=== PATIENT | male | born 1980 | race Two or more races ===

== ENCOUNTER 2023-03-04 14:33 | Emergency (ER) | payer SELFPAY ==
[2023-03-04] MEDS ORDERED: Benzocaine 20% Topical Spray UD MUCMEM ONE (16:08)
[2023-03-04] MEDS ORDERED: Midazolam 1 MG/ML 2 ML SDV IVPUSH ONE ×2 (17:11→17:33)
[2023-03-04] MEDS ORDERED: Lactated Ringers 1,000 ML IV SCH (17:15)
[2023-03-04] MEDS ORDERED: Propofol 200 MG/20 ML SDV ONE ×2 (17:36→18:08)
[2023-03-04] MEDS ORDERED: Lidocaine 1% 2 ML ONE (17:37)
[2023-03-04] MEDS ORDERED: fentaNYL 100 MCG/2 ML SDV ONE (17:37)
[2023-03-04] MEDS ORDERED: Midazolam 1 MG/ML 2 ML SDV ONE (17:53)
== END 2023-03-04 19:17 | disposition other institution (70) ==
LOC: JD.ED 14:33 → MERGE 14:33 → JD.ED 19:17
DX: J39.2 Other diseases of pharynx (principal)
CPT/HCPCS: 70360; 71046; 96361; 96374; 99283; A9270; J2250; J2704; J3010; J7120; 99284; J3490